=== PATIENT | female | born 1955 | race African-American/Black ===

== ENCOUNTER 2021-12-04 14:52 | Emergency (ER) | payer BC, MEDICAID ==
[~2021-12-04] VITALS: Ht 165.1 cm; Wt 109.0 kg
[2021-12-04 17:21] VITALS: BP 174/96
== END 2021-12-04 18:02 | disposition home or self-care (01) ==
LOC: ER 14:52
DX: I10 Essential (primary) hypertension (principal)
CPT/HCPCS: 99281